=== PATIENT | male | born 1970 | race Caucasian/White ===

== ENCOUNTER 2023-09-11 15:25 | Outpatient (CLI) | payer BC, SELFPAY ==
--- NOTE | 2023-09-11 15:38 | XRR_ITS ---
PROCEDURE INFORMATION: Exam: XR Cervical Spine Exam date and time: 09/11/2023 3:41 PM Age: 53 years old Clinical indication: Pain; Cervicalgia TECHNIQUE: Imaging protocol: Radiologic exam of the cervical spine. Views: 2 or 3 views. COMPARISON: No relevant prior studies available. FINDINGS: Bones/joints: Normal. No acute fracture. Normal alignment. No significant disc space narrowing or spurring. Anatomic alignment. No abnormal motion or extension. Soft tissues: Unremarkable. XR/XR cervical spine fl/ex [id number] IMPRESSION: No acute findings.
== END 2023-09-11 15:26 | disposition home or self-care (01) ==
LOC: RAD 15:33
PROVIDERS: PCP Internal Medicine; Visit Provider Nurse Practitioner
DX: M54.2 Cervicalgia (principal)
CPT/HCPCS: 72040

== ENCOUNTER 2024-01-15 20:00 | Outpatient (CLI) | payer BC, SELFPAY | END 2024-01-15 20:01 | disposition home or self-care (01) | LOC: SLEEP 23:14 | PROVIDERS: PCP Internal Medicine; Visit Provider Anesthesiology Pain Medicine | DX: G47.10 Hypersomnia, unspecified (principal) | CPT/HCPCS: 95810 ==